=== PATIENT | male | born 1960 | race Caucasian/White ===

== ENCOUNTER → 2016-12-27 | Outpatient (CLI) | payer MEDICAID ==
[~2016-12-27] MED LIST: FLUO40CA9 PO; GABA100C PO; HYDR-3240 PO; HYDR10TA4 PO; HYDR12.53 PO; HYDR1TAB12 PO; HYDR25TA6 PO; LACT1CAP24 PO; LEVO500T33 PO; LEVO750T26 PO; LORA1TAB PO; METH500T97 PO; METH750T2 PO; METO50TA82 PO; ONDA8TAB9 PO; OXYC5TAB3 PO; POLY17PO5 PO
== END | disposition home or self-care (01) ==
LOC: ROC 13:53
PROVIDERS: ATTEND Radiology Radiation Oncology
DX: C81.92 Hodgkin lymphoma, unspecified, intrathoracic lymph nodes (principal); Z92.3 Personal history of irradiation; J84.10 Pulmonary fibrosis, unspecified
CPT/HCPCS: 99212; G0463

== ENCOUNTER → 2017-01-21 | Outpatient (CLI) | payer MEDICAID | END | disposition home or self-care (01) | LOC: CARD 12:09 | PROVIDERS: ATTEND Internal Medicine Critical Care Medicine | DX: R06.02 Shortness of breath (principal) | CPT/HCPCS: 94060; 94726; 94729 ==

== ENCOUNTER → 2017-03-25 | Outpatient (CLI) | payer MEDICAID | END | disposition home or self-care (01) | LOC: CFH 11:56 | PROVIDERS: ATTEND Internal Medicine Critical Care Medicine | DX: J84.9 Interstitial pulmonary disease, unspecified (principal); Z85.71 Personal history of Hodgkin lymphoma; Z92.3 Personal history of irradiation; R59.0 Localized enlarged lymph nodes | CPT/HCPCS: 71250 ==

== ENCOUNTER → 2017-07-14 | Outpatient (CLI) | payer MEDICAID ==
[~2017-07-14] MED LIST changes: -LEVO500T33 PO; +LEVO500T47 PO; +OMNIPAQUE 350 MG/ML, 100ML BOTTLE ONE
== END | disposition home or self-care (01) ==
LOC: CFH 13:26
PROVIDERS: ATTEND Internal Medicine
DX: C81.92 Hodgkin lymphoma, unspecified, intrathoracic lymph nodes (principal); J84.10 Pulmonary fibrosis, unspecified; J18.9 Pneumonia, unspecified organism
CPT/HCPCS: 71260; 74160; Q9967